=== PATIENT | female | born 1970 | race Caucasian/White ===

== ENCOUNTER 2016-10-01 12:12 | Emergency (ER) | payer BC | END 2016-10-01 15:50 | disposition home or self-care (01) | LOC: D.ER 12:12 | DX: H57.02 Anisocoria (principal); H53.8 Other visual disturbances; R51 Headache ==

== ENCOUNTER → 2018-03-13 15:00 | Outpatient (CLI) | payer BC | END | disposition home or self-care (01) | LOC: D.RAD 15:00 | DX: N20.1 Calculus of ureter (principal) ==

== ENCOUNTER → 2018-09-05 13:35 | Outpatient (CLI) | payer BC | END | disposition home or self-care (01) | LOC: D.CT 13:35 | PROVIDERS: ATTEND Nurse Practitioner | DX: N20.0 Calculus of kidney (principal) ==

== ENCOUNTER → 2018-12-19 13:18 | Outpatient (CLI) | payer BC ==
--- NOTE | 2018-12-23 11:41 | EC ---
PATIENT:MP RAI DATE OF SERVICE: 12/19/18 SEX: F MEDICAL RECORD: [id number] DATE OF : [birth year] [facility] AGE OF PATIENT: 48 ADMISSION DATE: 12/19/18 REFERRING PHYSICIAN: INTERPRETING PHYSICIAN: DAYAN GROSS MD ECHOCARDIOGRAM REPORT ECHO CHARGES 4 ECHO COMPLETE Date: 12/19/18 CLINICAL DIAGNOSIS: DIZZINESS,PALPITATIONS,TACHYCA RDIA ECHOCARDIOGRAPHIC MEASUREMENTS (adult normal given) AC root (d.<3.7cm) 3.3 cm LV Septum d (<1.2 cm> 1.4 cm Valve Excursion 1.9 cm LV Septum (systole) 1.6 cm Left Atria (s.<4.0cm> 3.8 cm LVPW d(<1.2cm) 1.7 cm RV (d.<2.3cm) 3.3 cm LVPW (sytole) 1.8 cm LV diastole(<5.6CM) 3.9 cm MV E-F(>70mm/sec) cm LV systole 2.7 cm LVOT Diameter 2.1 cm MV exc.(>10mm) 1.1 cm Est.ejection fraction (50-75%) % DOPPLER: LVIT cm/sec A 66.0 cm/sec E 82.0 cm/sec LA cm/sec RVSP 22 mmHg LVOT 88 cm/sec AOP1/2T m/s Asc. Ao 103 cm/sec RVOT 85 cm/sec RA cm/sec PA 100 cm/sec AV Gradient Peak 4.26 mmHg AV Mean 2.38 mmHg AV Area 3.6 cm MV Gradient Peak 3.35 mmHg MV Mean 1.33 mmHg MV Area cm COMMENTS: Recreation Manager: 2 ARIANE CHAO Monument Mason: 1 Dr. Gross TAPE# PACS Pericardial Effusion N DATE OF SERVICE: PROCEDURE: Echocardiogram. FINDINGS: 1. Left ventricular chamber size is within normal limits. Left ventricular systolic function is normal. Overall ejection fraction estimated at 60% to 65%. 2. Left atrium, right atrium and right ventricular chamber sizes are within normal limits. 3. Valvular structures have normal structure and motion. ECHOCARDIOGRAM REPORT [id number] MP RAI 4. Doppler interrogation only reveals trace tricuspid regurgitation, no other valvular insufficiency or stenosis. Pulmonary systolic pressure is normal estimated at 22 mmHg. 5. No evidence of pericardial effusion or left ventricular thrombus. TRANSINT:[id number] Voice Confirmation ID: [id number] DOCUMENT ID: [id number] DAYAN GROSS MD at 1141 CC: [id number] DICTATION DATE: 12/22/18 1121 STRUCTURAL RIGGER: 12/22/18 1208 DEP CLI 12/19/18 [place] [id number] [place] [id number]
== END | disposition home or self-care (01) ==
LOC: D.HCCECHO 13:18
PROVIDERS: ATTEND Internal Medicine Interventional Cardiology
DX: R42 Dizziness and giddiness (principal)